=== PATIENT | male | born 1965 | race Caucasian/White ===

== ENCOUNTER 2017-01-11 18:52 | Emergency (ER) | payer MEDICAID, OTHER ==
[~2017-01-11] VITALS: Ht 175.3 cm; Wt 90.7 kg
[2017-01-11 18:53] VITALS: BP 116/75
[2017-01-11] MEDS ORDERED: PENI250T57 PO (19:52)
[2017-01-11] MEDS ORDERED: PENICILLIN V POTASSIUM 500 MG TAB PO ONE (20:00)
== END 2017-01-11 20:18 | disposition home or self-care (01) ==
LOC: M ED 19:58
DX: K08.89 Other specified disorders of teeth and supporting structures (principal); F17.200 Nicotine dependence, unspecified, uncomplicated